=== PATIENT | female | born 1945 | race Two or more races ===

== ENCOUNTER 2019-03-20 20:34 | Inpatient (IN) | payer MEDICAID, OTHER ==
[~2019-03-20] VITALS: Ht 149.9 cm; Wt 79.8 kg
[2019-03-20] MEDS ORDERED: SODIUM CHLORIDE 0.9% 1,000 ML IV ONE ×2 (20:54)
[2019-03-20] MEDS ORDERED: VANCOMYCIN 1 G PREMIX 200 ML IV ONE (21:00)
[2019-03-20] MEDS ORDERED: PIPERACILLIN/TAZ 3.375G PREMIX 50 ML IV ONE (21:00)
[2019-03-20] MEDS ORDERED: DEXTROSE 50% WATER 50ML SYRINGE IV ONE (21:00)
[2019-03-20 21:16] LABS: BASOPHILS % 0.9 % (0.0-2.0); EOSINOPHILS % 2.1 % (0.0-5.0); HEMATOCRIT. 34.1 % (36.0-48.0); LYMPHOCYTES % 37.9 % (20.0-50.0); MEAN CORPUSCULAR HEMOGLOBIN 31.3 pg (28.0-32.0); MEAN PLATELET VOLUME 7.9 fl (7.4-10.4); MONOCYTES % 8.8 % (2.0-8.0); NEUTROPHILS % 50.3 % (40.0-76.0); PLATELET 183 x1000/uL (130-400); RED BLOOD CELL COUNT 3.83 mill/uL (4.2-5.4); RED CELL DISTRIBUTION WIDTH 16.4 % (11.6-14.6)
[2019-03-20 21:20] LABS: CHLORIDE 103 mEq/L (98-107)
[2019-03-20 21:21] LABS: INR 1.2; PARTIAL THROMBOPLASTIN TIME 26.8 sec (23.4-31.0); PROTHROMBIN TIME 12.7 sec (9.6-11.0)
[2019-03-20 21:24] LABS: ETHANOL BLOOD < 10 mg/dL
[2019-03-20 21:28] LABS: CREATINE KINASE 94 IU/L (26-192)
[2019-03-20 21:31] LABS: CREATINE KINASE MB FRACTION 2.2 ng/mL (0.5-3.6)
[2019-03-20] MEDS ORDERED: DIPHENHYDRAMINE 50MG/ML VIAL IV ONE (22:30)
[2019-03-20] MEDS ORDERED: LACTULOSE 20G/30ML UDC PO ONE (23:15)
[2019-03-21 05:57] LABS: *AMPHETAMINES SCREEN URINE NEGATIVE (NEGATIVE)
[2019-03-21 05:58] LABS: *BARBITURATES SCREEN URINE NEGATIVE (NEGATIVE); *BENZODIAZEPINES SCREEN URINE NEGATIVE (NEGATIVE); *COCAINE SCREEN URINE NEGATIVE (NEGATIVE)
[2019-03-21 05:59] LABS: CANNABINOID URINE SCREEN NEGATIVE (NEGATIVE); METHADONE URINE SCREEN NEGATIVE (NEGATIVE); OPIATES URINE SCREEN NEGATIVE (NEGATIVE); PHENCYCLIDINE URINE SCREEN NEGATIVE (NEGATIVE)
[2019-03-21 06:53] VITALS: BP 152/79
[2019-03-21 07:18] LABS: CLARITY URINE HAZY (CLEAR); COLOR URINE YELLOW (YELLOW); SPECIFIC GRAVITY URINE 1.009 (1.005-1.030)
[2019-03-21 07:19] LABS: KETONES URINE NEGATIVE (NEGATIVE); LEUKOCYTE ESTERASE URINE NEGATIVE (NEGATIVE); NITRITE URINE NEGATIVE (NEGATIVE); OCCULT BLOOD URINE 2+ (NEGATIVE); PROTEIN URINE NEGATIVE (NEGATIVE); UROBILINOGEN URINE 0.2 E.U./dL (0.2-1.0)
[2019-03-21 08:00] VITALS: BP 155/70
[2019-03-21] MEDS ORDERED: IPRATROPIUM/ALBUTEROL 0.5-3(2.5)MG/3ML NEB HHN PRN (08:00)
[2019-03-21] MEDS ORDERED: CLONIDINE 0.1MG TABLET PO PRN (08:00)
[2019-03-21] MEDS ORDERED: DEXT 5%/0.45% NACL 1000ML 1,000 ML IV SCH (08:00)
[2019-03-21] MEDS ORDERED: LACTULOSE 300 ML in WATER FOR IRRIGATION,STERILE 700 ML IR NR (09:30)
[2019-03-21] MEDS: RIFAXIMIN 550 MG TABLET PO SCH ×2 (11:37→21:42)
[2019-03-21 12:00] VITALS: BP 144/86
[2019-03-21 12:11] LABS: HEPATITIS B SURFACE ANTIGEN NEGATIVE
[2019-03-21 12:40] LABS: HEPATITIS A AB IGM NEGATIVE (NEGATIVE)
[2019-03-21] MEDS: LACTULOSE 20G/30ML UDC PO SCH ×2 (13:43→23:21)
[2019-03-21] MEDS: CEFEPIME 1,000 MG in DEXTROSE 5% WATER 50 ML IV SCH ×2 (13:44→21:43)
[2019-03-21] MEDS: METRONIDAZOLE 500 MG PREMIX 100 ML IV SCH ×2 (14:58→18:58)
[2019-03-21 16:00] VITALS: BP 157/77
[2019-03-21] MEDS ORDERED: ATOR40TA70 MT (17:45)
[2019-03-21] MEDS ORDERED: METO-539 MT (17:45)
[2019-03-21] MEDS ORDERED: HYDR25TA MT (17:45)
[2019-03-21] MEDS ORDERED: AMLO2.5T45 MT (17:45)
[2019-03-21] MEDS ORDERED: METF-416 MT (17:45)
[2019-03-21] MEDS ORDERED: PANT40TA4 MT (17:45)
[2019-03-21] MEDS ORDERED: FURO20TA4 MT (17:45)
[2019-03-21] MEDS ORDERED: LACT10SO6 MT (17:45)
[2019-03-21] MEDS ORDERED: LISI40TA4 MT (17:45)
[2019-03-21] MEDS ORDERED: NAPR-681 MT (17:45)
[2019-03-21 20:00] VITALS: BP 141/63
[2019-03-21] MEDS: BLOOD SUGAR DIAGNOSTIC STRIP TEST SCH (21:00)
[2019-03-22] VITALS: BP 136/63
[2019-03-22] MEDS: METRONIDAZOLE 500 MG PREMIX 100 ML IV SCH ×3 (02:11→17:49)
[2019-03-22 04:00] VITALS: BP 119/66
[2019-03-22] MEDS: BLOOD SUGAR DIAGNOSTIC STRIP TEST SCH ×4 (06:34→21:17)
[2019-03-22] MEDS: LACTULOSE 20G/30ML UDC PO SCH ×3 (06:35→21:17)
[2019-03-22 06:58] LABS: BASOPHILS % 0.6 % (0.0-2.0); HEMATOCRIT. 30.7 % (36.0-48.0); HEMOGLOBIN. 10.5 g/dL (12.0-16.0); LYMPHOCYTES % 36.4 % (20.0-50.0); MEAN CORPUSCULAR HEMOGLOBIN 30.7 pg (28.0-32.0); MEAN PLATELET VOLUME 7.9 fl (7.4-10.4); MONOCYTES % 10.1 % (2.0-8.0); NEUTROPHILS % 49.9 % (40.0-76.0); PLATELET 129 x1000/uL (130-400); RED BLOOD CELL COUNT 3.41 mill/uL (4.2-5.4); RED CELL DISTRIBUTION WIDTH 16.3 % (11.6-14.6)
[2019-03-22 07:13] LABS: CHLORIDE 111 mEq/L (98-107)
[2019-03-22 08:00] VITALS: BP 162/90
[2019-03-22] MEDS: RIFAXIMIN 550 MG TABLET PO SCH ×2 (09:31→21:17)
[2019-03-22] MEDS: CEFEPIME 1,000 MG in DEXTROSE 5% WATER 50 ML IV SCH ×2 (09:31→21:17)
[2019-03-22 12:00] VITALS: BP 150/47
[2019-03-22] MEDS ORDERED: DEXTROSE 50% WATER 50ML SYRINGE IV PRN (12:15)
[2019-03-22] MEDS: INSULIN LISPRO 100 UNITS/ML SUBCUT SCH ×3 (12:35→21:59)
[2019-03-22] MEDS ORDERED: LACTULOSE 300 ML in WATER FOR IRRIGATION,STERILE 700 ML IR NR (13:00)
[2019-03-22 16:00] VITALS: BP 151/76
[2019-03-22] MEDS ORDERED: BLOOD SUGAR DIAGNOSTIC STRIP TEST SCH (16:45)
[2019-03-22 20:00] VITALS: BP 119/68
[2019-03-23] VITALS: BP 136/74
[2019-03-23] MEDS: METRONIDAZOLE 500 MG PREMIX 100 ML IV SCH ×2 (01:33→10:00)
[2019-03-23 04:00] VITALS: BP 145/66
[2019-03-23] MEDS ORDERED: HYDROCODONE/ACETAMINOPHEN 5/325MG TABLET PO PRN (05:00)
[2019-03-23] MEDS: BLOOD SUGAR DIAGNOSTIC STRIP TEST SCH ×2 (06:20→12:39)
[2019-03-23] MEDS: LACTULOSE 20G/30ML UDC PO SCH ×2 (06:20→13:02)
[2019-03-23] MEDS: INSULIN LISPRO 100 UNITS/ML SUBCUT SCH ×2 (06:35→13:03)
[2019-03-23 07:03] LABS: BASOPHILS % 0.1 % (0.0-2.0); EOSINOPHILS % 2.6 % (0.0-5.0); HEMOGLOBIN. 11.2 g/dL (12.0-16.0); LYMPHOCYTES % 13.8 % (20.0-50.0); MEAN CORPUSCULAR HEMOGLOBIN 30.7 pg (28.0-32.0); MEAN CORPUSCULAR VOLUME 90.7 fL (81.0-99.0); MEAN PLATELET VOLUME 7.9 fl (7.4-10.4); MONOCYTES % 6.5 % (2.0-8.0); PLATELET 137 x1000/uL (130-400); RED BLOOD CELL COUNT 3.64 mill/uL (4.2-5.4); RED CELL DISTRIBUTION WIDTH 16.8 % (11.6-14.6)
[2019-03-23 07:18] LABS: CHLORIDE 112 mEq/L (98-107)
[2019-03-23 08:00] VITALS: BP 150/73
[2019-03-23] MEDS: CEFEPIME 1,000 MG in DEXTROSE 5% WATER 50 ML IV SCH (10:00)
[2019-03-23] MEDS: RIFAXIMIN 550 MG TABLET PO SCH (10:00)
[2019-03-23 12:00] VITALS: BP 143/67
[2019-03-23 14:49] VITALS: BP 143/67
== END 2019-03-23 15:25 | disposition home or self-care (01) | DRG 137 ==
LOC: ER 20:34 → EDBEDREQSVC 23:08 → EDBEDREQ 23:08 → EDBEDREQTM 23:08 → 5WST 23:48 → EDBEDREQTM 23:59 → EDBEDREQ 23:59 → ENRESERV 03-21 05:59
PROVIDERS: ADMIT Internal Medicine; ATTEND Internal Medicine
DX: J69.0 Pneumonitis due to inhalation of food and vomit (principal); K72.00 Acute and subacute hepatic failure without coma; E87.2 Acidosis; E66.01 Morbid (severe) obesity due to excess calories; K76.6 Portal hypertension; D64.9 Anemia, unspecified; E11.9 Type 2 diabetes mellitus without complications; I11.9 Hypertensive heart disease without heart failure; I10 Essential (primary) hypertension; K72.90 Hepatic failure, unspecified without coma; K74.60 Unspecified cirrhosis of liver; Z90.49 Acquired absence of other specified parts of digestive tract; Z68.35 Body mass index [BMI] 35.0-35.9, adult; Z71.3 Dietary counseling and surveillance; R74.8 Abnormal levels of other serum enzymes
CPT/HCPCS: 36415; 71045; 76700; 80048; 80076; 80305; 80320; 81003; 82140; 82550; 82553; 82962; 83036; 83605; 83880; 84145; 84443; 84484; 86705; 86709; 86803; 87340; 92610; 93005; 93970; 96374; 99285; C1893; J0692; J1200; J1815; J2543; J3370; J3490; J7030; J7040; J7060; G0480

== ENCOUNTER 2019-10-29 16:56 | Emergency (ER) | payer MEDICAID ==
[~2019-10-29] VITALS: Ht 147.3 cm; Wt 69.0 kg
[~2019-10-29 16:56] MED LIST: AMLO2.5T45 MT; ATOR40TA70 MT; FURO20TA4 MT; HYDR25TA MT; LACT10SO6 MT; LISI40TA4 MT; METF-416 MT; METO-539 MT; NAPR-681 MT; PANT40TA4 MT
[2019-10-29] MEDS ORDERED: HYDROCODONE/ACETAMINOPHEN 5/325MG TABLET PO ONE (18:30)
[2019-10-29 18:34] VITALS: BP 140/71
== END 2019-10-29 21:47 | disposition home or self-care (01) ==
LOC: ER 16:56
DX: S42.302A Unspecified fracture of shaft of humerus, left arm, initial encounter for closed fracture (principal); S52.502A Unspecified fracture of the lower end of left radius, initial encounter for closed fracture; E11.9 Type 2 diabetes mellitus without complications; I10 Essential (primary) hypertension; Z79.899 Other long term (current) drug therapy; Z98.890 Other specified postprocedural states; W18.30XA Fall on same level, unspecified, initial encounter; Y93.89 Activity, other specified; Y92.89 Other specified places as the place of occurrence of the external cause; Y99.8 Other external cause status
CPT/HCPCS: 29105; 73060; 73080; 73090; 73110; 99284

== ENCOUNTER 2021-05-03 11:55 | Inpatient (IN) | payer MEDICAID, OTHER ==
[~2021-05-03] VITALS: Ht 154.9 cm; Wt 80.3 kg
[~2021-05-03 11:55] MED LIST changes: +LISI40TA13 MT; -LISI40TA4 MT; -PANT40TA4 MT; +PANT40TA51 MT
[2021-05-03 13:27] LABS: BASOPHILS % 0.5 % (0.0-2.0); EOSINOPHILS % 2.2 % (0.0-5.0); HEMATOCRIT. 34.8 % (36.0-48.0); HEMOGLOBIN. 11.6 g/dL (12.0-16.0); LYMPHOCYTES % 35.9 % (20.0-50.0); MEAN CORPUSCULAR HEMOGLOBIN 29.2 pg (28.0-32.0); MEAN CORPUSCULAR VOLUME 87.6 fL (81.0-99.0); MEAN PLATELET VOLUME 8.1 fl (7.4-10.4); MONOCYTES % 10.2 % (2.0-8.0); NEUTROPHILS % 51.2 % (40.0-76.0); PLATELET 131 x1000/uL (130-400); RED BLOOD CELL COUNT 3.97 mill/uL (4.2-5.4); RED CELL DISTRIBUTION WIDTH 18.3 % (11.6-14.6)
[2021-05-03 13:32] LABS: INR 1.2
[2021-05-03] MEDS ORDERED: FUROSEMIDE 20MG/2ML VIAL IVP ONE (13:45)
[2021-05-03 13:47] LABS: CHLORIDE 107 mEq/L (98-107)
[2021-05-03 14:27] LABS: CLARITY URINE CLOUDY (CLEAR); COLOR URINE YELLOW (YELLOW); KETONES URINE NEGATIVE (NEGATIVE); LEUKOCYTE ESTERASE URINE 2+ (NEGATIVE); NITRITE URINE NEGATIVE (NEGATIVE); OCCULT BLOOD URINE 1+ (NEGATIVE); PROTEIN URINE 1+ (NEGATIVE); SPECIFIC GRAVITY URINE 1.011 (1.005-1.030)
[2021-05-03] MEDS ORDERED: LACTULOSE 20G/30ML UDC PO ONE (15:00)
[2021-05-03] MEDS ORDERED: CEFTRIAXONE 2 G PREMIX 50 ML IV ONE (15:00)
[2021-05-03] MEDS ORDERED: VANCOMYCIN 1 G PREMIX 200 ML IV ONE (15:00)
[2021-05-03 20:30] VITALS: BP 167/60
[2021-05-03 21:00] VITALS: BP 167/60
[2021-05-03] MEDS ORDERED: LACT10SO6 MT (22:44)
[2021-05-03] MEDS ORDERED: INSU100I32 SQ ×2 (22:44)
[2021-05-03] MEDS ORDERED: FLUO20TA29 MT (22:44)
[2021-05-03] MEDS ORDERED: FERR325T6 PO (22:44)
[2021-05-03] MEDS ORDERED: CALC1CAP22 PO (22:44)
[2021-05-03] MEDS ORDERED: ALEN70TA79 MT (22:44)
[2021-05-03] MEDS ORDERED: INSU100I24 SQ (22:44)
[2021-05-03] MEDS ORDERED: DEXTROSE 50% WATER 50ML SYRINGE IV PRN (23:30)
[2021-05-03] MEDS ORDERED: LACTULOSE 20G/30ML UDC PO PRN (23:30)
[2021-05-03] MEDS ORDERED: ONDANSETRON HCL 4MG/2ML INJ IV PRN (23:30)
[2021-05-03] MEDS ORDERED: ACETAMINOPHEN 325MG TABLET PO PRN (23:30)
[2021-05-03] MEDS ORDERED: CEFTRIAXONE 1 G PREMIX 50 ML IV SCH (23:30)
[2021-05-04] VITALS: BP 138/59
[2021-05-04 04:00] VITALS: BP 142/56
[2021-05-04] MEDS ORDERED: FUROSEMIDE 40MG/4ML VIAL IVP SCH (06:00)
[2021-05-04 06:31] LABS: BASOPHILS % 0.3 % (0.0-2.0); EOSINOPHILS % 1.9 % (0.0-5.0); HEMATOCRIT. 33.9 % (36.0-48.0); HEMOGLOBIN. 11.5 g/dL (12.0-16.0); LYMPHOCYTES % 32.4 % (20.0-50.0); MEAN CORPUSCULAR HEMOGLOBIN 29.7 pg (28.0-32.0); MEAN CORPUSCULAR VOLUME 87.5 fL (81.0-99.0); MEAN PLATELET VOLUME 8.7 fl (7.4-10.4); MONOCYTES % 9.5 % (2.0-8.0); NEUTROPHILS % 55.9 % (40.0-76.0); PLATELET 107 x1000/uL (130-400); RED BLOOD CELL COUNT 3.88 mill/uL (4.2-5.4); RED CELL DISTRIBUTION WIDTH 18.1 % (11.6-14.6)
[2021-05-04] MEDS: BLOOD SUGAR DIAGNOSTIC STRIP TEST SCH ×4 (06:38→20:49)
[2021-05-04] MEDS: INSULIN LISPRO 100 UNITS/ML SUBCUT SCH ×4 (06:40→21:05)
[2021-05-04 06:43] LABS: CHLORIDE 106 mEq/L (98-107)
[2021-05-04 06:53] LABS: LDL CHOLESTEROL 47 mg/dL (5-100)
[2021-05-04 06:54] LABS: HDL CHOLESTEROL 54 mg/dL (40-59)
[2021-05-04 08:00] VITALS: BP 174/68
[2021-05-04] MEDS: METOPROLOL TARTRATE 50MG TABLET PO SCH ×2 (10:08→17:54)
[2021-05-04] MEDS: LISINOPRIL 40MG TABLET PO SCH (10:08)
[2021-05-04] MEDS: AMLODIPINE 10MG TABLET PO SCH (10:08)
[2021-05-04 12:00] VITALS: BP 129/50
[2021-05-04] MEDS ORDERED: *PATIENT'S OWN MEDICATION STORAGE XX SCH (13:00)
[2021-05-04] MEDS ORDERED: POTASSIUM CHLORIDE 20MEQ TABLET SR PO NR (14:00)
[2021-05-04] MEDS: LACTULOSE 20G/30ML UDC PO SCH ×2 (14:40→17:54)
[2021-05-04 16:00] VITALS: BP 126/71
[2021-05-04] MEDS: CEFTRIAXONE 1,000 MG in DEXTROSE 5% WATER 50 ML IV SCH (17:54)
[2021-05-04 20:00] VITALS: BP 149/59
[2021-05-04] MEDS ORDERED: VANCOMYCIN 1 G PREMIX 200 ML IV SCH (20:00)
[2021-05-04] MEDS: ATORVASTATIN CALCIUM 40MG TABLET PO SCH (20:48)
[2021-05-05] VITALS: BP 138/60
[2021-05-05 04:00] VITALS: BP 134/51
[2021-05-05 05:57] LABS: CHLORIDE 107 mEq/L (98-107)
[2021-05-05 06:12] LABS: BASOPHILS % 0.5 % (0.0-2.0); EOSINOPHILS % 2.6 % (0.0-5.0); HEMATOCRIT. 33.2 % (36.0-48.0); HEMOGLOBIN. 11.2 g/dL (12.0-16.0); LYMPHOCYTES % 30.7 % (20.0-50.0); MEAN CORPUSCULAR HEMOGLOBIN 29.4 pg (28.0-32.0); MEAN CORPUSCULAR VOLUME 87.3 fL (81.0-99.0); MEAN PLATELET VOLUME 8.1 fl (7.4-10.4); MONOCYTES % 11.4 % (2.0-8.0); NEUTROPHILS % 54.8 % (40.0-76.0); PLATELET 130 x1000/uL (130-400); RED CELL DISTRIBUTION WIDTH 18.5 % (11.6-14.6)
[2021-05-05] MEDS: BLOOD SUGAR DIAGNOSTIC STRIP TEST SCH ×4 (06:21→20:46)
[2021-05-05] MEDS: INSULIN LISPRO 100 UNITS/ML SUBCUT SCH ×4 (06:51→21:23)
[2021-05-05 08:00] VITALS: BP 136/53
[2021-05-05] MEDS: FUROSEMIDE 40MG/4ML VIAL IVP SCH (08:50)
[2021-05-05] MEDS: METOPROLOL TARTRATE 50MG TABLET PO SCH ×2 (08:50→17:38)
[2021-05-05] MEDS: LACTULOSE 20G/30ML UDC PO SCH ×3 (08:50→17:38)
[2021-05-05] MEDS: LISINOPRIL 40MG TABLET PO SCH (08:51)
[2021-05-05] MEDS: AMLODIPINE 10MG TABLET PO SCH (08:51)
[2021-05-05] MEDS ORDERED: POTASSIUM CHLORIDE 20MEQ TABLET SR PO NR (11:30)
[2021-05-05 12:00] VITALS: BP 149/52
[2021-05-05 16:00] VITALS: BP 145/53
[2021-05-05] MEDS: CEFTRIAXONE 1,000 MG in DEXTROSE 5% WATER 50 ML IV SCH (16:11)
[2021-05-05 20:00] VITALS: BP 117/64
[2021-05-05] MEDS: ATORVASTATIN CALCIUM 40MG TABLET PO SCH (20:45)
[2021-05-06] VITALS: BP 115/70
[2021-05-06 04:00] VITALS: BP 129/50
[2021-05-06] MEDS: BLOOD SUGAR DIAGNOSTIC STRIP TEST SCH ×2 (06:17→12:28)
[2021-05-06] MEDS: INSULIN LISPRO 100 UNITS/ML SUBCUT SCH ×2 (07:40→12:46)
[2021-05-06 08:00] VITALS: BP 129/52
[2021-05-06] MEDS: LACTULOSE 20G/30ML UDC PO SCH ×2 (09:34→13:00)
[2021-05-06] MEDS: METOPROLOL TARTRATE 50MG TABLET PO SCH (09:34)
[2021-05-06] MEDS: FUROSEMIDE 40MG/4ML VIAL IVP SCH (09:39)
[2021-05-06] MEDS: LISINOPRIL 40MG TABLET PO SCH (09:39)
[2021-05-06] MEDS: AMLODIPINE 10MG TABLET PO SCH (09:39)
[2021-05-06] MEDS ORDERED: LEVO500T89 MT (11:32)
[2021-05-06 12:00] VITALS: BP 113/41
[2021-05-06 13:12] VITALS: BP 113/41
[2021-05-09] MEDS ORDERED: ALENDRONATE SODIUM 35MG TABLET PO SCH (07:00)
== END 2021-05-06 14:30 | disposition home health service (06) | DRG 279 ==
LOC: ER 11:55 → EDBEDREQ 12:19 → EDBEDREQTM 13:58 → EDBEDREQ 15:39 → EDBEDREQTM 15:39 → ENRESERV 18:05 → 8WST 20:52
PROVIDERS: ADMIT Internal Medicine; ATTEND Internal Medicine
DX: K72.90 Hepatic failure, unspecified without coma (principal); K76.6 Portal hypertension; E44.1 Mild protein-calorie malnutrition; R78.81 Bacteremia; I11.0 Hypertensive heart disease with heart failure; I50.40 Unspecified combined systolic (congestive) and diastolic (congestive) heart failure; E11.9 Type 2 diabetes mellitus without complications; B96.1 Klebsiella pneumoniae [K. pneumoniae] as the cause of diseases classified elsewhere; D64.9 Anemia, unspecified; N39.0 Urinary tract infection, site not specified; E66.9 Obesity, unspecified; E78.5 Hyperlipidemia, unspecified; R16.1 Splenomegaly, not elsewhere classified; Z79.899 Other long term (current) drug therapy; Z79.84 Long term (current) use of oral hypoglycemic drugs; Z68.33 Body mass index [BMI] 33.0-33.9, adult; K74.69 Other cirrhosis of liver; I86.8 Varicose veins of other specified sites
CPT/HCPCS: 36415; 71045; 76700; 80048; 80053; 80061; 80202; 81003; 82140; 82962; 83036; 83605; 83880; 84145; 84484; 85025; 87077; 87186; 93005; 93306; 97162; 99291; J0696; J1815; J1940; J3370; J7040; J7060

== ENCOUNTER 2021-05-15 13:15 | Inpatient (IN) | payer OTHER ==
[~2021-05-15] VITALS: Ht 154.9 cm; Wt 74.8 kg
[~2021-05-15 13:15] MED LIST changes: +ALEN70TA79 MT; -ATOR40TA70 MT; +CALC1CAP22 PO; +FERR325T6 PO; +FLUO20TA29 MT; -HYDR25TA MT; +INSU100I24 SQ; +INSU100I32 SQ; +LEVO500T89 MT; -PANT40TA51 MT
[2021-05-15] MEDS ORDERED: ONDANSETRON 4MG ODT PO NR (14:15)
[2021-05-15 15:19] LABS: BASOPHILS % 0.2 % (0.0-2.0); EOSINOPHILS % 1.9 % (0.0-5.0); HEMOGLOBIN. 12.2 g/dL (12.0-16.0); LYMPHOCYTES % 20.9 % (20.0-50.0); MEAN CORPUSCULAR HEMOGLOBIN 29.9 pg (28.0-32.0); MEAN CORPUSCULAR VOLUME 88.2 fL (81.0-99.0); MEAN PLATELET VOLUME 7.9 fl (7.4-10.4); MONOCYTES % 11.8 % (2.0-8.0); NEUTROPHILS % 65.2 % (40.0-76.0); PLATELET 145 x1000/uL (130-400); RED BLOOD CELL COUNT 4.09 mill/uL (4.2-5.4); RED CELL DISTRIBUTION WIDTH 18.7 % (11.6-14.6)
[2021-05-15 15:24] LABS: INR 1.3
[2021-05-15 15:26] LABS: CHLORIDE 110 mEq/L (98-107)
[2021-05-15 15:30] LABS: ETHANOL BLOOD < 10 mg/dL
[2021-05-15] MEDS ORDERED: LACTULOSE 300 ML in WATER FOR IRRIGATION,STERILE 700 ML IR ONE (16:00)
[2021-05-15] MEDS ORDERED: SODIUM CHLORIDE 0.9% 1,000 ML IV ONE (16:00)
[2021-05-15 21:35] VITALS: BP 148/61
[2021-05-16] VITALS: BP 100/61
[2021-05-16] MEDS ORDERED: DEXTROSE 50% WATER 50ML SYRINGE IV PRN (00:45)
[2021-05-16] MEDS: MORPHINE SULFATE 2 MG/ML CPJ (NOT FOR IM USE) IV PRN ×4 (01:42→22:15)
[2021-05-16] MEDS: CEFTRIAXONE 1,000 MG in DEXTROSE 5% WATER 50 ML IV SCH (01:57)
[2021-05-16] MEDS ORDERED: AMLO2.5T45 PO (02:54)
[2021-05-16 04:00] VITALS: BP 148/48
[2021-05-16] MEDS: PANTOPRAZOLE 40MG DR TABLET PO SCH (06:24)
[2021-05-16] MEDS: INSULIN LISPRO 100 UNITS/ML SUBCUT SCH ×4 (06:24→21:00)
[2021-05-16] MEDS: BLOOD SUGAR DIAGNOSTIC STRIP TEST SCH ×4 (06:24→21:00)
[2021-05-16] MEDS ORDERED: ALENDRONATE SODIUM 35MG TABLET PO SCH (07:00)
[2021-05-16 08:00] VITALS: BP 120/59
[2021-05-16] MEDS: METOPROLOL TARTRATE 50MG TABLET PO SCH ×2 (09:00→22:13)
[2021-05-16] MEDS ORDERED: HYDROCODONE/ACETAMINOPHEN 5/325MG TABLET PO PRN (10:30)
[2021-05-16] MEDS ORDERED: NALOXONE HCL 0.4MG/ML VIAL IV PRN (10:45)
[2021-05-16] MEDS: LACTULOSE 20G/30ML UDC PO SCH ×3 (10:59→16:58)
[2021-05-16] MEDS: FLUOXETINE HCL 20MG CAPSULE PO SCH (10:59)
[2021-05-16] MEDS: AMLODIPINE 10MG TABLET PO SCH (11:00)
[2021-05-16 12:00] VITALS: BP 110/78
[2021-05-16] MEDS: SODIUM CHLORIDE 0.9% 1,000 ML IV SCH ×3 (14:00→22:00)
[2021-05-16 14:24] LABS: CLARITY URINE CLOUDY (CLEAR); COLOR URINE YELLOW (YELLOW); KETONES URINE NEGATIVE (NEGATIVE); LEUKOCYTE ESTERASE URINE 2+ (NEGATIVE); NITRITE URINE NEGATIVE (NEGATIVE); OCCULT BLOOD URINE 1+ (NEGATIVE); PROTEIN URINE 1+ (NEGATIVE); SPECIFIC GRAVITY URINE 1.015 (1.005-1.030); UROBILINOGEN URINE 0.2 E.U./dL (0.2-1.0)
[2021-05-16 15:01] LABS: *COCAINE SCREEN URINE NEGATIVE (NEGATIVE); METHADONE URINE SCREEN NEGATIVE (NEGATIVE); OPIATES URINE SCREEN PRESUMTIVE POSITIVE (NEGATIVE)
[2021-05-16 15:02] LABS: *AMPHETAMINES SCREEN URINE NEGATIVE (NEGATIVE); *BARBITURATES SCREEN URINE NEGATIVE (NEGATIVE); *BENZODIAZEPINES SCREEN URINE NEGATIVE (NEGATIVE); CANNABINOID URINE SCREEN NEGATIVE (NEGATIVE); PHENCYCLIDINE URINE SCREEN NEGATIVE (NEGATIVE)
[2021-05-16] MEDS: ENOXAPARIN 30MG/0.3ML SYR SUBCUT SCH (16:21)
[2021-05-16 16:30] VITALS: BP 116/48
[2021-05-16 17:52] LABS: BASOPHILS % 0.2 % (0.0-2.0); EOSINOPHILS % 2.6 % (0.0-5.0); HEMATOCRIT. 30.9 % (36.0-48.0); HEMOGLOBIN. 10.4 g/dL (12.0-16.0); LYMPHOCYTES % 18.2 % (20.0-50.0); MEAN CORPUSCULAR VOLUME 88.6 fL (81.0-99.0); MONOCYTES % 12.2 % (2.0-8.0); NEUTROPHILS % 66.8 % (40.0-76.0); PLATELET 99 x1000/uL (130-400); RED BLOOD CELL COUNT 3.48 mill/uL (4.2-5.4); RED CELL DISTRIBUTION WIDTH 18.3 % (11.6-14.6)
[2021-05-16 18:00] LABS: PHOSPHORUS 6.1 mg/dL (2.5-4.9)
[2021-05-16 20:00] VITALS: BP 112/50
[2021-05-16] MEDS: ONDANSETRON HCL 4MG/2ML INJ IV PRN (22:26)
[2021-05-16] MEDS ORDERED: KCL 20MEQ/100ML PREMIX 100 ML IV NR (23:30)
[2021-05-17] VITALS: BP 114/47
[2021-05-17] MEDS: CEFTRIAXONE 1,000 MG in DEXTROSE 5% WATER 50 ML IV SCH (00:13)
[2021-05-17 04:00] VITALS: BP 110/50
[2021-05-17] MEDS: SODIUM CHLORIDE 0.9% 1,000 ML IV SCH ×3 (04:40→22:08)
[2021-05-17 06:35] LABS: BASOPHILS % 0.5 % (0.0-2.0); EOSINOPHILS % 3.2 % (0.0-5.0); HEMOGLOBIN. 10.1 g/dL (12.0-16.0); LYMPHOCYTES % 28.3 % (20.0-50.0); MEAN CORPUSCULAR HEMOGLOBIN 30.4 pg (28.0-32.0); MEAN CORPUSCULAR VOLUME 93.2 fL (81.0-99.0); MEAN PLATELET VOLUME 8.2 fl (7.4-10.4); MONOCYTES % 12.2 % (2.0-8.0); NEUTROPHILS % 55.8 % (40.0-76.0); PLATELET 80 x1000/uL (130-400); RED BLOOD CELL COUNT 3.33 mill/uL (4.2-5.4); RED CELL DISTRIBUTION WIDTH 19.1 % (11.6-14.6)
[2021-05-17] MEDS: BLOOD SUGAR DIAGNOSTIC STRIP TEST SCH ×4 (06:56→21:54)
[2021-05-17] MEDS: INSULIN LISPRO 100 UNITS/ML SUBCUT SCH ×4 (06:57→22:08)
[2021-05-17] MEDS: PANTOPRAZOLE 40MG DR TABLET PO SCH (07:00)
[2021-05-17 07:05] LABS: CHLORIDE 118 mEq/L (98-107)
[2021-05-17 07:13] LABS: PHOSPHORUS 6.2 mg/dL (2.5-4.9)
[2021-05-17 08:00] VITALS: BP 111/49
[2021-05-17] MEDS: ENOXAPARIN 30MG/0.3ML SYR SUBCUT SCH (08:41)
[2021-05-17] MEDS: METOPROLOL TARTRATE 50MG TABLET PO SCH ×2 (09:00→22:07)
[2021-05-17] MEDS: ONDANSETRON HCL 4MG/2ML INJ IV PRN (09:38)
[2021-05-17] MEDS: FLUOXETINE HCL 20MG CAPSULE PO SCH (10:03)
[2021-05-17] MEDS: AMLODIPINE 10MG TABLET PO SCH (10:03)
[2021-05-17] MEDS: LACTULOSE 20G/30ML UDC PO SCH ×3 (10:04→17:07)
[2021-05-17 12:16] VITALS: BP 100/56
[2021-05-17] MEDS ORDERED: ALBUMIN HUMAN 25GM/100ML (25%) IV NR (12:30)
[2021-05-17 16:00] VITALS: BP 116/51
[2021-05-17 20:00] VITALS: BP 127/58
[2021-05-18] VITALS: BP 113/43
[2021-05-18] MEDS: CEFTRIAXONE 1,000 MG in DEXTROSE 5% WATER 50 ML IV SCH (01:51)
[2021-05-18 04:00] VITALS: BP 134/51
[2021-05-18] MEDS: SODIUM CHLORIDE 0.9% 1,000 ML IV SCH (05:29)
[2021-05-18] MEDS: PANTOPRAZOLE 40MG DR TABLET PO SCH (05:40)
[2021-05-18] MEDS: INSULIN LISPRO 100 UNITS/ML SUBCUT SCH ×4 (05:40→20:54)
[2021-05-18] MEDS: BLOOD SUGAR DIAGNOSTIC STRIP TEST SCH ×4 (05:40→20:54)
[2021-05-18 06:56] LABS: CHLORIDE 122 mEq/L (98-107)
[2021-05-18 07:04] LABS: PHOSPHORUS 4.7 mg/dL (2.5-4.9)
[2021-05-18 07:05] LABS: CREATINE KINASE 79 IU/L (26-192)
[2021-05-18 08:00] VITALS: BP 127/54
[2021-05-18] MEDS: LACTULOSE 20G/30ML UDC PO SCH ×5 (09:07→17:13)
[2021-05-18] MEDS: FLUOXETINE HCL 20MG CAPSULE PO SCH (09:07)
[2021-05-18] MEDS: AMLODIPINE 10MG TABLET PO SCH (09:07)
[2021-05-18] MEDS: METOPROLOL TARTRATE 50MG TABLET PO SCH ×2 (09:07→20:54)
[2021-05-18] MEDS: DEXTROSE 5% WATER 1,000 ML IV SCH ×2 (11:04→20:54)
[2021-05-18 11:45] LABS: BASOPHILS % 0.4 % (0.0-2.0); EOSINOPHILS % 2.6 % (0.0-5.0); HEMATOCRIT. 32.4 % (36.0-48.0); HEMOGLOBIN. 10.8 g/dL (12.0-16.0); LYMPHOCYTES % 13.3 % (20.0-50.0); MEAN CORPUSCULAR HEMOGLOBIN 30.2 pg (28.0-32.0); MEAN CORPUSCULAR VOLUME 90.4 fL (81.0-99.0); MONOCYTES % 8.7 % (2.0-8.0); PLATELET 101 x1000/uL (130-400); RED BLOOD CELL COUNT 3.58 mill/uL (4.2-5.4); RED CELL DISTRIBUTION WIDTH 18.6 % (11.6-14.6)
[2021-05-18 12:00] VITALS: BP 122/52
[2021-05-18 16:00] VITALS: BP 119/48
[2021-05-18 20:00] VITALS: BP 125/47
[2021-05-19] VITALS: BP 145/61
[2021-05-19] MEDS: CEFTRIAXONE 1,000 MG in DEXTROSE 5% WATER 50 ML IV SCH (00:32)
[2021-05-19 04:00] VITALS: BP 130/59
[2021-05-19] MEDS: PANTOPRAZOLE 40MG DR TABLET PO SCH (06:19)
[2021-05-19] MEDS: BLOOD SUGAR DIAGNOSTIC STRIP TEST SCH ×3 (06:19→16:40)
[2021-05-19] MEDS: DEXTROSE 5% WATER 1,000 ML IV SCH ×2 (06:20→15:15)
[2021-05-19] MEDS: INSULIN LISPRO 100 UNITS/ML SUBCUT SCH ×3 (06:28→17:10)
[2021-05-19 06:42] LABS: BASOPHILS % 0.6 % (0.0-2.0); EOSINOPHILS % 3.4 % (0.0-5.0); HEMATOCRIT. 31.7 % (36.0-48.0); HEMOGLOBIN. 10.4 g/dL (12.0-16.0); LYMPHOCYTES % 24.1 % (20.0-50.0); MEAN CORPUSCULAR HEMOGLOBIN 30.4 pg (28.0-32.0); MEAN CORPUSCULAR VOLUME 92.3 fL (81.0-99.0); MEAN PLATELET VOLUME 7.6 fl (7.4-10.4); MONOCYTES % 7.7 % (2.0-8.0); NEUTROPHILS % 64.2 % (40.0-76.0); PLATELET 78 x1000/uL (130-400); RED BLOOD CELL COUNT 3.43 mill/uL (4.2-5.4); RED CELL DISTRIBUTION WIDTH 19.1 % (11.6-14.6)
[2021-05-19] MEDS: METOPROLOL TARTRATE 50MG TABLET PO SCH (09:15)
[2021-05-19] MEDS: FLUOXETINE HCL 20MG CAPSULE PO SCH (09:16)
[2021-05-19] MEDS: AMLODIPINE 10MG TABLET PO SCH (09:16)
[2021-05-19] MEDS: LACTULOSE 20G/30ML UDC PO SCH ×2 (12:56→17:00)
[2021-05-19] MEDS ORDERED: POTASSIUM CHLORIDE 20MEQ TABLET SR PO SCH (13:15)
[2021-05-19] MEDS ORDERED: RIFA150T2 MT ×2 (15:48)
[2021-05-19] MEDS ORDERED: AMLO10TA80 PO (15:48)
[2021-05-19] MEDS ORDERED: ENOXAPARIN 30MG/0.3ML SYR SUBCUT SCH (21:00)
== END 2021-05-19 18:10 | disposition home health service (06) | DRG 282 ==
LOC: ER 13:15 → 7EST 15:10 → ENRESERV 19:42
PROVIDERS: ADMIT Internal Medicine; ATTEND Internal Medicine
DX: K85.90 Acute pancreatitis without necrosis or infection, unspecified (principal); N17.0 Acute kidney failure with tubular necrosis; R65.11 Systemic inflammatory response syndrome (SIRS) of non-infectious origin with acute organ dysfunction; E43 Unspecified severe protein-calorie malnutrition; K72.90 Hepatic failure, unspecified without coma; D69.6 Thrombocytopenia, unspecified; K76.6 Portal hypertension; N39.0 Urinary tract infection, site not specified; D64.9 Anemia, unspecified; E11.9 Type 2 diabetes mellitus without complications; K74.60 Unspecified cirrhosis of liver; E66.9 Obesity, unspecified; E78.00 Pure hypercholesterolemia, unspecified; I25.10 Atherosclerotic heart disease of native coronary artery without angina pectoris; E78.5 Hyperlipidemia, unspecified; I10 Essential (primary) hypertension; Z79.4 Long term (current) use of insulin; Z79.899 Other long term (current) drug therapy; Z68.31 Body mass index [BMI] 31.0-31.9, adult; Z82.49 Family history of ischemic heart disease and other diseases of the circulatory system; Z83.3 Family history of diabetes mellitus
CPT/HCPCS: 36415; 71045; 74176; 76700; 80048; 80053; 80076; 80305; 80320; 81003; 82140; 82248; 82550; 82962; 83605; 83735; 83880; 84100; 84145; 84484; 85025; 93005; 93970; 97162; 97166; 99285; J0696; J1650; J1815; J2270; J2405; J3480; J7030; J7060; J7070; P9047; Q0162; G0480